=== PATIENT | female | born 1975 | race Caucasian/White ===

== ENCOUNTER 2024-11-08 18:13 | Emergency (ER) | payer MEDICARE, MEDICAID ==
[~2024-11-08] VITALS: Ht 180.3 cm; Wt 131.2 kg
[~2024-11-08 18:13] MED LIST: INSU100I31 SQ; INSU100V13 SQ
--- NOTE | 2024-11-08 18:38 | ELECTROCARDIOGRAPH REPORT ---
[facility] Test Date: 2024-11-08 Test Time: 18:22:25 Pat Name: CRISTINA BROUSSARD Department: EMERGENCY ROOM Room: Gender: F [employer] Machine: : 1975 Requested By: LARA FOREMAN Order Number: [id number] Reading MD: Measurements Intervals [place] Rate: 84 P: 9 MN: 155 QRS: -15 QRSD: 87 T: 11 QT: 412 QTc: 488 Interpretive Statements Sinus rhythm LVH by voltage Anterior Q waves, possibly due to LVH Baseline wander in lead(s) V6 Please click the below link to view image of tracing.
[2024-11-08 18:57] LABS: BASOPHILS # (AUTO) 0.1 X10'3 (0-0.2); BASOPHILS % (AUTO) 1.2 % (0-1); EOSINOPHILS # (AUTO) 0.4 X10'3 (0-0.9); EOSINOPHILS % (AUTO) 5.1 % (0-6); HEMATOCRIT 41.3 % (35.0-45.0); HEMOGLOBIN 13.7 g/dl (12.0-16.0); LYMPHOCYTES # (AUTO) 2.1 X10'3 (1.1-4.8); LYMPHOCYTES % (AUTO) 28.3 % (21-51); MEAN CORPUSCULAR HGB CONC 33.1 g/dL (33.0-36.5); MEAN CORPUSCULAR VOLUME 90.4 FL (78-98); MEAN PLATELET VOLUME 9.9 FL (7.4-10.4); MONOCYTES # (AUTO) 0.6 X10'3 (0-0.9); MONOCYTES % (AUTO) 8.8 % (2-12); NEUTROPHILS # (AUTO) 4.2 X10'3 (1.8-7.7); NEUTROPHILS % (AUTO) 56.6 % (42-75); PLATELET COUNT 185 X10'3 (140-440); RED BLOOD COUNT 4.56 X10'6 (4.20-5.60); WHITE BLOOD COUNT 7.4 X10'3 (4.5-11.0)
--- NOTE | 2024-11-08 19:02 | RADIOLOGY REPORT ---
Clinical History CP Comparison None Without Contrast CRISTINA BROUSSARD, [id number] Technique: Single view PA upright chest x-ray Findings: The study is obtained with inadequate inspiration, a factor that decreases the sensitivity of detecti ng bibasilar lung changes. Left mid lung zone subsegmental linear atelectasis. No pleural abnormality. The cardiomediastinal silhouette is unremarkable for an AP view. No acute osseous abnormality. The imaged part of the upper abdomen is unremarkable. Impression: No evidence of acute cardiopulmonary disease This report was electronically signed by Bolivar Goode MD on 11/08/2024 6:58:36 PM.
[2024-11-08 19:14] LABS: ALANINE AMINOTRANSFERASE 24 U/L (12-78); ALBUMIN 3.8 G/DL (3.4-5.0); ALKALINE PHOSPHATASE 105 IU/L (46-116); ANION GAP 12 (8-16); ASPARTATE AMINO TRANSFERASE 22 U/L (10-37); BILIRUBIN,TOTAL 0.3 MG/DL (0.1-1.0); BLOOD UREA NITROGEN 27 MG/DL (7-18); BUN/CREATININE RATIO 29.3 (10.0-20.0); CALCIUM 9.3 MG/DL (8.5-10.1); CHLORIDE 103 MMOL/L (99-107); CREATININE 0.92 MG/DL (0.40-0.90); GLUCOSE 153 MG/DL (70-104); POTASSIUM 4.6 MMOL/L (3.5-5.1); SODIUM 139 MMOL/L (135-145); TOTAL PROTEIN 7.7 G/DL (6.4-8.2); eCRCL 81 ML/MIN; eGFR 64 ML/MIN
[2024-11-08 19:21] LABS: PRO BRAIN NATRIURETIC PEPTIDE 59 PG/ML (0-125)
[2024-11-08 22:39] VITALS: TEMP 98.4
--- NOTE | 2024-11-08 23:20 | Physician Documentation ---
History of Present Illness ~ Chief Complaint: Chest Pain Stated Complaint: CP, SOB, LBP Time Seen by MD: 23:15 Primary Medical Doctor: Edwin MEHTA Patient presents to the emergency room advised to come in by home health nurse. Patient has a complicated medical history this past month where she had sustained V-tach along with syncopal episode and rhabdomyolysis. She was seen here and evaluated by cardiology and then eventually sent to rehab facility and it was just discharged this past week. Patient has been having intermittent right upper chest pain and home health nurse reported some low blood pressures and told her to go in to be evaluated. No current chest pain . Denies one- sided leg pain or new onset swelling. Denies shortness of breath or fevers. She was put on a Holter monitor during her stay at rehab that has not heard back from the results. She reports that no new medications were added or taken away over the past month by cardiology although she was put on Jardiance Entresto and Lasix Medication Reconciliation Allergies: Coded Allergies: Sulfa (Sulfonamide Antibiotics) (Verified Allergy, Unknown, 11/08/24) Uncoded Allergies: NSAIDS (Adverse Reaction, Severe, gastric bypass ( no Nsaids and no intubation), 09/29/24) Scheduled Insulin Aspart (Novolog), 5-10 UNITS SQ TIDWM, (Reported) Insulin Glargine,Hum.rec.anlog (Basaglar Kwikpen U-100), 16 UNITS SQ QAM, (Reported) Past Medical History Patient History: Diabetes mellitus (DM) Review of Systems ROS All review of systems negative except as per HPI Physical Exam Vital Signs: Temperature: 98.4, Source: Oral, Heart Rate: 93, Respiratory Rate: 18, BP: 154/78, Pulse Oximetry: 98, Weight: 131.200 Oxygen Flow Rate: 0 Physical Exam General: Patient is awake, alert, oriented x4 in no acute distress Head: Normocephalic and atraumatic. Eyes: Conjunctival normal. EOMI. PERRL. ENT: Mucous membranes moist. Neck: Supple, trachea is midline. Chest: Clear to auscultation bilaterally without rales, rhonchi, or wheezes. There is no accessory muscle use or retractions. Cardiac: RRR without murmurs, gallops, or rubs. Abd: Soft, nondistended, nontender, with normoactive bowel sounds. No guarding, rebound, or rigidity. Extremities: Normal strength. Normal range of motion. No deformities or edema. No calf tenderness to palpation Progress Results/Orders Results/Orders Orders - MICHAEL JUNE MD Chest,Single View (11/08/24 18:36) Monitor (11/08/24 18:36) Saline Lock (11/08/24 18:36) Oxygen (11/08/24 18:36) Completed Orders - MICHAEL JUNE MD Chest,Single View (11/08/24 18:36) Cbc/Diff (11/08/24 18:36) PBNP (11/08/24 18:36) Electrocardiogram (11/08/24 18:36) CMP (11/08/24 18:36) Hs Troponin I W Calculations (11/08/24 18:36) Hs Troponin I W Calculations (11/08/24 20:36) Hs Troponin I W Calculations (11/08/24 21:36) Vital Signs 11/08/24 11/08/24 11/08/24 18:31 22:39 22:43 Temp 97.3 98.4 Pulse 82 93 Resp 16 16 18 B/P (MAP) 155/52 154/78 (103) Pulse Ox 100 98 O2 Flow Rate 0 0 Laboratory Tests Test 11/08/24 18:27 11/08/24 20:22 11/08/24 21:17 White Blood Count 7.4 Red Blood Count 4.56 Hemoglobin 13.7 Hematocrit 41.3 Mean Corpuscular Volume 90.4 Mean Corpuscular Hemoglobin 30.0 Mean Corpuscular Hemoglobin Concent 33.1 Red Cell Distribution Width 14.0 Platelet Count 185 Mean Platelet Volume 9.9 Neutrophils (%) (Auto) 56.6 Lymphocytes (%) (Auto) 28.3 Monocytes (%) (Auto) 8.8 Eosinophils (%) (Auto) 5.1 Basophils (%) (Auto) 1.2 H Neutrophils # (Auto) 4.2 Lymphocytes # (Auto) 2.1 Monocytes # (Auto) 0.6 Eosinophils # (Auto) 0.4 Basophils # (Auto) 0.1 CBC Comment Sodium Level 139 Potassium Level 4.6 Chloride Level 103 Carbon Dioxide Level 24.0 Anion Gap 12 Blood Urea Nitrogen 27 H Creatinine 0.92 H Estimated GFR/1.73 m2 64 BUN/Creatinine Ratio 29.3 H Glucose Level 153 H Calcium Level 9.3 Total Bilirubin 0.3 Aspartate Amino Transf (AST/SGOT) 22 Alanine Aminotransferase (ALT/SGPT) 24 Alkaline Phosphatase 105 Troponin I High Sensitivity 11 10 11 Pro-B-Type Natriuretic Peptide 59 Total Protein 7.7 Albumin 3.8 Globulin 3.9 Albumin/Globulin Ratio 1.0 L Chemistry Comments Troponin I High Sens Percent Delta 9 10 Troponin I Hi Sens Absolute Change -1 1 EKG/XRAY/CT/US/VASC/MRI EKG : Additional Comment EKG interpreted by myself shows time of 1822, rate 84, sinus rhythm, left axis deviation, no ST changes Chest X-Ray : Additional Comments Exam: CHEST,SINGLE VIEW Clinical History CP Comparison None Without Contrast FRIENDCRISTINA, [id number] Technique: Single view PA upright chest x-ray Findings: The study is obtained with inadequate inspiration, a factor that decreases the sensitivity of detecting bibasilar lung changes. Left mid lung zone subsegmental linear atelectasis. No pleural abnormality. The cardiomediastinal silhouette is unremarkable for an AP view. No acute osseous abnormality. The imaged part of the upper abdomen is unremarkable. Impression: No evidence of acute cardiopulmonary disease Medical Decision Making Findings Patient presents to the emergency room for evaluation of chest pain and low blood pressures as per HPI. Differentials include but are not limited to pneumonia, sepsis, dehydration, musculoskeletal pain, ACS therefore emergent labs and imaging indicated. Labs reassuring for no elevation of troponins. Patient's chest pain is atypical and he had not feel this represents ACS. Pain occurred at rest. No calf tenderness and no hypoxia and he had not feel she requires investigation and possible pulmonary embolism especially in the light of no current symptoms. Patient does not have hypotension here. No evidence of sepsis. ER precautions discussed Departure Disposition: HOME / SELF CARE / HOMELESS Impression: Primary Impression: Chest pain Condition: Stable Discharge Instructions: Nonspecific Chest Pain, Adult Referrals: NO PRIMARY CARE PROVIDER (PCP) Education Educated: Patient Educated regarding: need for follow up Signature Scribe Signature: No scribe Attestation: The note accurately reflects work and decisions made by me.Michael June MD 11/08/24 23:30 MICHAEL JUNE MD November 08, 2024 23:20
[2024-11-08 23:40] VITALS: BP 114/63; PULSE 99; RESP 19; O2SAT 100
== END 2024-11-08 23:44 | disposition home or self-care (01) ==
LOC: ER 18:14
DX: R07.89 Other chest pain (principal); E11.9 Type 2 diabetes mellitus without complications; Z88.2 Allergy status to sulfonamides
CPT/HCPCS: 36415; 71045; 80053; 83880; 84484; 85025; 93005; 99285